=== PATIENT | male | born 1965 | race African-American/Black ===

== ENCOUNTER 2018-11-07 02:08 | Inpatient (IN) | payer SELFPAY ==
[2018-11-07] VITALS (64 sets, daily range): BP systolic 91–145; BP diastolic 63–105
[~2018-11-07] VITALS: Ht 177.8 cm; Wt 78.2 kg
[2018-11-07] MEDS ORDERED: ONDANSETRON HCL 4MG/2ML INJ IV STA (02:22)
[2018-11-07] MEDS ORDERED: FENTANYL CITRATE/PF 50MCG/ML 2ML VIAL IV ONE (02:30)
[2018-11-07] MEDS ORDERED: PROPOFOL 10MG/ML 100ML 100 ML IV ONE ×2 (02:30→04:15)
[2018-11-07] MEDS ORDERED: ETOMIDATE 2MG/ML 10ML VIAL IV ONE ×2 (02:30→18:22)
[2018-11-07] MEDS ORDERED: SUCCINYLCHOLINE CHLORIDE 200MG/10ML IV ONE ×2 (02:30→18:22)
[2018-11-07 03:05] LABS: BG BASE EXCESS -1.7 mmol/L (-2.0-2.0); BG CARBOXYHEMOGLOBIN 0.9 % (0.5-1.5); BG DEOXYHEMOGLOBIN 1.3 % (0.0-5.0); BG FRACTION INSPIRED OXYGEN 40; BG HCO3 ACT 24.8 mmol/L (22.0-26.0); BG METHEMOGLOBIN 0.3 % (0.0-1.5); BG OXYGEN SATURATION 98.7 % (92.0-98.5); BG OXYHEMOGLOBIN 97.5 % (94.0-97.0); BG PCO2 48.6 mmHg (35.0-45.0); BG PH 7.325 (7.350-7.450); BG PO2 144.6 mmHg (75.0-100.0); BG SAMPLE SITE LEFT BRACHIAL; BG TIDAL VOLUME(mL) 500 mL; BG TOTAL HEMOGLOBIN 13.7 g/dL (12.0-18.0); BG VENT MODE VENT - A/C; BG VENT RATE 14 set
[2018-11-07] MEDS ORDERED: FAMOTIDINE 20MG/2ML VIAL IV ONE (03:15)
[2018-11-07] MEDS ORDERED: DIPHENHYDRAMINE 50MG/ML VIAL IV ONE (03:15)
[2018-11-07] MEDS ORDERED: DEXAMETHASONE 10 MG/ML VIAL IV ONE (03:15)
[2018-11-07 03:27] LABS: BASOPHILS % 0.6 % (0.0-2.0); EOSINOPHILS % 2.5 % (0.0-5.0); HEMATOCRIT. 43.6 % (42.0-52.0); HEMOGLOBIN. 14.3 g/dL (14.0-18.0); LYMPHOCYTES % 35.3 % (20.0-50.0); MEAN CORPUSCULAR HEMOGLOBIN 29.2 pg (28.0-32.0); MEAN CORPUSCULAR VOLUME 88.7 fL (80.0-94.0); NEUTROPHILS % 51.6 % (40.0-76.0); PLATELET 431 x1000/uL (130-400); RED BLOOD CELL COUNT 4.92 mill/uL (4.7-6.1); RED CELL DISTRIBUTION WIDTH 14.4 % (11.6-14.6)
[2018-11-07 03:39] LABS: CHLORIDE 102 mEq/L (98-107)
[2018-11-07 03:51] LABS: *AMPHETAMINES SCREEN URINE NEGATIVE (NEGATIVE); *BARBITURATES SCREEN URINE NEGATIVE (NEGATIVE); *BENZODIAZEPINES SCREEN URINE NEGATIVE (NEGATIVE); *COCAINE SCREEN URINE NEGATIVE (NEGATIVE); METHADONE URINE SCREEN NEGATIVE (NEGATIVE); OPIATES URINE SCREEN NEGATIVE (NEGATIVE)
[2018-11-07 03:52] LABS: CANNABINOID URINE SCREEN PRESUMTIVE POSITIVE (NEGATIVE); PHENCYCLIDINE URINE SCREEN NEGATIVE (NEGATIVE)
[2018-11-07] MEDS ORDERED: HYDRALAZINE 20MG/ML VIAL IV PRN (06:45)
[2018-11-07] MEDS ORDERED: DIPHENHYDRAMINE 50MG/ML VIAL IV NR (06:45)
[2018-11-07] MEDS: PROPOFOL 10MG/ML 100ML 100 ML IV PRN ×5 (07:50→22:39)
[2018-11-07 08:42] LABS: BG BASE EXCESS 2.4 mmol/L (-2.0-2.0); BG CARBOXYHEMOGLOBIN 0.3 % (0.5-1.5); BG DEOXYHEMOGLOBIN 1.1 % (0.0-5.0); BG FRACTION INSPIRED OXYGEN 40; BG HCO3 ACT 25.8 mmol/L (22.0-26.0); BG METHEMOGLOBIN 0.7 % (0.0-1.5); BG OXYGEN SATURATION 98.9 % (92.0-98.5); BG OXYHEMOGLOBIN 97.9 % (94.0-97.0); BG PCO2 36.2 mmHg (35.0-45.0); BG PH 7.471 (7.350-7.450); BG SAMPLE SITE RIGHT RADIAL; BG TIDAL VOLUME(mL) 500 mL; BG TOTAL HEMOGLOBIN 15.1 g/dL (12.0-18.0); BG VENT MODE VENT - A/C; BG VENT RATE 16 set
[2018-11-07] MEDS: FAMOTIDINE 20MG/2ML VIAL IV SCH ×2 (09:07→21:58)
[2018-11-07] MEDS ORDERED: PROPOFOL 10MG/ML 100ML 100 ML IV PRN (09:30)
[2018-11-07] MEDS ORDERED: IPRATROPIUM/ALBUTEROL 0.5-3(2.5)MG/3ML NEB HHN PRN (09:30)
[2018-11-07] MEDS: ENOXAPARIN 40MG/0.4ML SYR SUBCUT SCH (10:00)
[2018-11-07] MEDS: DIPHENHYDRAMINE 50MG/ML VIAL IV SCH ×2 (12:43→17:33)
[2018-11-07] MEDS: DEXAMETHASONE 10 MG/ML VIAL IV SCH ×2 (12:43→17:33)
[2018-11-07] MEDS: LORAZEPAM 2MG/ML CPJ IV PRN (20:31)
[2018-11-08] VITALS (94 sets, daily range): BP systolic 93–135; BP diastolic 55–90
[2018-11-08] MEDS: DIPHENHYDRAMINE 50MG/ML VIAL IV SCH ×3 (00:16→11:28)
[2018-11-08] MEDS: DEXAMETHASONE 10 MG/ML VIAL IV SCH ×4 (00:17→17:10)
[2018-11-08] MEDS: PROPOFOL 10MG/ML 100ML 100 ML IV PRN ×6 (02:22→22:12)
[2018-11-08 07:42] LABS: BG BASE EXCESS -1.7 mmol/L (-2.0-2.0); BG CARBOXYHEMOGLOBIN 0.3 % (0.5-1.5); BG DEOXYHEMOGLOBIN 2.2 % (0.0-5.0); BG FRACTION INSPIRED OXYGEN 30; BG HCO3 ACT 22.1 mmol/L (22.0-26.0); BG METHEMOGLOBIN 0.1 % (0.0-1.5); BG OXYGEN SATURATION 97.8 % (92.0-98.5); BG OXYHEMOGLOBIN 97.4 % (94.0-97.0); BG PH 7.419 (7.350-7.450); BG PO2 104.2 mmHg (75.0-100.0); BG SAMPLE SITE RIGHT RADIAL; BG TIDAL VOLUME(mL) 500 mL; BG TOTAL HEMOGLOBIN 13.5 g/dL (12.0-18.0); BG VENT MODE VENT - A/C; BG VENT RATE 14 set
[2018-11-08] MEDS: FAMOTIDINE 20MG/2ML VIAL IV SCH ×2 (09:15→21:22)
[2018-11-08] MEDS: ENOXAPARIN 40MG/0.4ML SYR SUBCUT SCH (09:15)
[2018-11-08] MEDS: LORAZEPAM 2MG/ML CPJ IV PRN ×2 (11:21→17:10)
[2018-11-08] MEDS: DEXT 5%/0.45% NACL 1000ML 1,000 ML IV SCH ×2 (12:57→21:29)
[2018-11-09] VITALS (48 sets, daily range): BP systolic 115–175; BP diastolic 69–130
[2018-11-09] MEDS: DEXAMETHASONE 10 MG/ML VIAL IV SCH ×3 (00:13→12:00)
[2018-11-09] MEDS: PROPOFOL 10MG/ML 100ML 100 ML IV PRN ×2 (03:34→08:14)
[2018-11-09] MEDS: FAMOTIDINE 20MG/2ML VIAL IV SCH (08:13)
[2018-11-09] MEDS: DEXT 5%/0.45% NACL 1000ML 1,000 ML IV SCH (08:14)
[2018-11-09] MEDS: ENOXAPARIN 40MG/0.4ML SYR SUBCUT SCH (08:17)
[2018-11-09 10:36] LABS: BG BASE EXCESS 2.5 mmol/L (-2.0-2.0); BG CARBOXYHEMOGLOBIN 0.4 % (0.5-1.5); BG DEOXYHEMOGLOBIN 2.7 % (0.0-5.0); BG FRACTION INSPIRED OXYGEN 30; BG HCO3 ACT 26.2 mmol/L (22.0-26.0); BG METHEMOGLOBIN 0.4 % (0.0-1.5); BG OXYGEN SATURATION 97.3 % (92.0-98.5); BG OXYHEMOGLOBIN 96.5 % (94.0-97.0); BG PCO2 37.7 mmHg (35.0-45.0); BG PO2 91.3 mmHg (75.0-100.0); BG PRESSURE SUPPORT 8; BG SAMPLE SITE RIGHT RADIAL; BG TOTAL HEMOGLOBIN 13.5 g/dL (12.0-18.0); BG VENT MODE VENT - CPAP
== END 2018-11-09 12:39 | disposition left against medical advice (07) | DRG 811 ==
LOC: ER 03:07 → MICUNO 03:40 → EDBEDREQSVC 03:46 → EDBEDREQTM 03:46 → EDBEDREQ 03:46 → ENRESERV 05:05
PROVIDERS: ADMIT Internal Medicine; ATTEND Internal Medicine
DX: T88.6XXA Anaphylactic reaction due to adverse effect of correct drug or medicament properly administered, initial encounter (principal); J96.00 Acute respiratory failure, unspecified whether with hypoxia or hypercapnia; F12.90 Cannabis use, unspecified, uncomplicated; F17.200 Nicotine dependence, unspecified, uncomplicated; J98.8 Other specified respiratory disorders; T39.315A Adverse effect of propionic acid derivatives, initial encounter; Z78.1 Physical restraint status; Z88.8 Allergy status to other drugs, medicaments and biological substances; Z82.49 Family history of ischemic heart disease and other diseases of the circulatory system; Z83.3 Family history of diabetes mellitus; Y92.89 Other specified places as the place of occurrence of the external cause
CPT/HCPCS: 36415; 36600; 71045; 80305; 82375; 82805; 84478; 86850; 86900; 93005; 94002; 94003; 94640; 96374; 99285; J0330; J1100; J1200; J1650; J2060; J2405; J2704; J3010; J3490; J7050; J7620